=== PATIENT | male | born 1970 | race Caucasian/White ===

== ENCOUNTER 2020-01-16 14:03 | Emergency (ER) | payer OTHER, SELFPAY ==
--- NOTE | ~2020-01-16 | CT_ITS ---
EXAMINATION: CTA chest PE protocol DATE: 01/16/2020 15:48 INDICATION: Shortness of breath. Chest pain. TECHNIQUE: Computed tomography angiography (CTA) of the chest was performed with 100 mL Omnipaque-350 intravenous contrast timed to evaluate the pulmonary arteries. Coronal maximum intensity projection 3D-reconstructions were created by the technologist. Automated exposure control and iterative reconst ruction technique were employed. The dose-length product was 790.68 mGy-cm. COMPARISON: Chest CT 01/09/2015 FINDINGS: Again seen is a 3 mm nodule in left lower lobe, likely benign. No pleural effusion. The hea rt size is normal. No pericardial effusion. There is no pulmonary embolus. There is mild thoracic spo ndylosis. IMPRESSION: 1. No pulmonary embolus. Sensitivity is mildly decreased by motion artifact. Reviewed, dictated and finalized at location A.
[2020-01-16 14:10] VITALS: BP 152/92; PULSE 65; RESP 16; TEMP 37.6; O2SAT 100
--- NOTE | 2020-01-16 14:16 | ECG_ITS ---
Measurements Intervals [place] Rate: 66 P: 37 AK: 120 QRS: 5 QRSD: 89 T: 17 QT: 391 QTc: 412 Interpretive Statements SINUS RHYTHM BASELINE ARTIFACT- I, II, III, AVR, AVL, AVF, V4-V5 NORMAL ECG Electronically Signed On 01-16-2020 14:37:12 CDT by Kunal Campos D.O.
--- NOTE | 2020-01-16 14:25 | ED.CHESTPAIN ---
HPI - Chest Pain General Chief Complaint: Chest Pain Stated Complaint: sob Time Seen by Provider: 01/16/20 14:17 History of Present Illness HPI narrative: Patient presents with chest pain and back pain for a week. He has been getting short of breath while exercising. 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 He had PE a number of years ago, and was worried that that might be the same now. The chest pain is in the left lower chest, back pain is across the middle of the back. He says the pain pulses up his neck. He has no pain currently. His surgical history includes right ulnar nerve, and right elbow bursa. He does not smoke cigarettes, he does drink alcohol, he does not do marijuana. He has not been sick in the last week or 2. MD complaint: chest pain Pertinent past history: other (History of pulmonary embolism) Onset (ago): week(s) Timing of current episode: episodic Prior episodes: Yes Onset: during exertion Pain location: left chest Pain radiation: neck Severity: moderate Relieving factors: rest Exacerbating factors: exertion Related Data Home Medications Medication Instructions Recorded Confirmed lisinopril 20 mg PO DAILY 01/16/20 Allergies Allergy/AdvReac Type Severity Reaction Status Date / Time No Known Allergies Allergy Mild Verified 01/16/20 14:14 Review of Systems Review of Systems: Narrative: CONSTITUTIONAL: Denies fever, chills, or sweats. EYES: Denies visual changes, redness, or discharge. ENT: Denies rhinorrhea, congestion, sore throat, or otalgia. CARDIOVASCULAR: Denies chest pain, palpitations, or edema, now. RESPIRATORY: Denies cough or dyspnea. GASTROINTESTINAL: Denies abdominal pain, nausea, vomiting, or diarrhea. GENITOURINARY: Denies dysuria or hematuria. SKIN: Denies rash or itching. MUSCULOSKELETAL: Denies back pain now, joint pain, or myalgia. NEUROLOGIC: Denies headache, numbness, or weakness.. All systems reviewed & are unremarkable except as noted in HPI and below PMFSH Past Medical History Medical History (Updated 01/16/20 @ 16:30 by Edita Dozier MD) History of pulmonary embolism Surgical History Surgical History (Updated 01/16/20 @ 14:29 by Edita Dozier MD) History of decompression of ulnar nerve History of elbow surgery Social History Social History (Updated 01/16/20 @ 14:29 by Edita Dozier MD) Smoking status: Never smoker Alcohol intake: current Substance use: never Exam Narrative: Exam Narrative: GENERAL: Well-appearing, well-nourished, and in no acute distress. Shaved head, sunburn neck. HEAD: Normocephalic, atraumatic. EYES: PERRLA and EOMI. ENT: Nares clear, no rhinorrhea or epistaxis. Mucous membranes moist. NECK: Supple. CHEST: Clear to auscultation. No respiratory distress. HEART: Regular rate and rhythm. No murmur heard. Normal peripheral pulses. ABDOMEN: Soft, nontender, nondistended, normal active bowel sounds. EXTREMITIES: Normal range of motion. No edema. SKIN: Warm, dry, no rash. NEURO: No focal deficits. Alert and oriented x3. PSYCH: Normal mood and affect. Const: General: no acute distress and alert Orientation/consciousness: patient oriented x3 Course Reevaluation(s) Reevaluation #1: Went in to tell the patient the good results on his CAT scan. He is so glad not to have anymore pulmonary embolus. I think maybe the shortness of breath while running might be due to this excessive heat morning we have had. I will send him to a regional operations manager for risk stratification. Date: 01/16/20 Time: 16:31 Vital Signs Vital signs: Vital Signs Temperature 99.7 F H 01/16/20 14:10 Pulse Rate 65 01/16/20 14:10 Respiratory Rate 16 01/16/20 14:10 Blood Pressure 152/92 H 01/16/20 14:10 Pulse Oximetry 100 01/16/20 14:10 Temperature 99.7 F H 01/16/20 14:10 Pulse Rate 68 01/16/20 14:35 Respiratory Rate 16 01/16/20 14:10 Blood
[2020-01-16 14:31] LABS: Basophils Percent Auto 0.4 % (0.2-1.2); Eosinophils Absolute Auto 0.1 K/mm3 (0-0.3); Eosinophils Percent Auto 1.4 % (0-4.4); Hematocrit 39.8 % (42.0-52.0); Hemoglobin 14.1 g/dL (14.0-18.0); Immature Granulocyte Absolute 0.01 K/mm3 (0.00-0.031); Immature Granulocyte Percent A 0.1 % (0-0.5); Lymphocytes Absolute Auto 2.94 K/mm3 (0.9-3.2); Lymphocytes Percent Auto 42.3 % (18.3-44.2); Mean Corpuscular HGB Conc 35.4 g/dl (32-36); Mean Corpuscular Volume 90.2 fl (80-100); Mean Platelet Volume 11.3 fl (7.4-10.4); Monocytes Absolute Auto 0.7 K/mm3 (0.1-0.6); Monocytes Percent Auto 9.5 % (2.6-8.5); Neutrophils Absolute Auto 3.2 K/mm3 (1.3-6.7); Neutrophils Percent Auto 46.3 % (45.5-73.1); Platelet Count Result 228 k/mm3 (150-375); Red Blood Count 4.41 M/mm3 (4.6-6.20); Red Cell Distribution Width 12.6 % (11.5-14.5)
[2020-01-16 14:35] VITALS: PULSE 68; O2SAT 99
[2020-01-16 14:37] LABS: Prothrombin Time 12.8 Seconds (11.1-14.7)
[2020-01-16 14:38] LABS: Partial Thromboplastin Time 22.7 SECONDS (22.3-36.8)
[2020-01-16 14:39] LABS: Blood Urea Nitrogen 16 mg/dL (9-20); Carbon Dioxide 26 mmol/L (22-30); Chloride 101 mmol/L (98-107); Estimated CRCL calculation 111 ml/min; Estimated Glomerular Filt Rate > 60; Glucose 114 mg/dL (75-110); Sodium 138 mmol/L (137-145)
[2020-01-16 14:51] LABS: Troponin I < 0.012 ng/mL (0.000-0.034)
[2020-01-16 16:44] VITALS: BP 127/91; PULSE 63; RESP 16; O2SAT 99
== END 2020-01-16 16:45 | disposition home or self-care (01) ==
PROVIDERS: Emergency Provider Emergency Medicine; PCP Family Medicine Sports Medicine
DX: T67.9XXA Effect of heat and light, unspecified, initial encounter (principal); R07.89 Other chest pain; Z86.711 Personal history of pulmonary embolism
CPT/HCPCS: 36415; 71275; 80048; 84484; 85025; 85610; 85730; 93005; 99284; Q9967